=== PATIENT | female | born 2000 | race Caucasian/White ===

== ENCOUNTER 2019-10-19 20:15 | Emergency (ER) | payer OTHER ==
[~2019-10-19] VITALS: Ht 170.2 cm; Wt 61.2 kg
[2019-10-19 20:32] VITALS: BP_SYST 123
[2019-10-20] MEDS ORDERED: MORPHINE 2 MG/ML INJ. SYRINGE IM ONE (02:00)
[2019-10-20 03:07] VITALS: BP_SYST 122
== END 2019-10-20 03:07 | disposition home or self-care (01) ==
LOC: SED 20:15
DX: G43.909 Migraine, unspecified, not intractable, without status migrainosus (principal); G44.209 Tension-type headache, unspecified, not intractable; F32.9 Major depressive disorder, single episode, unspecified; F41.9 Anxiety disorder, unspecified; Z88.1 Allergy status to other antibiotic agents
CPT/HCPCS: 81025; 99282; J2270